=== PATIENT | female | born 2000 | race Caucasian/White ===

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

== ENCOUNTER 2021-07-10 07:48 | Emergency (ER) | payer BC ==
[~2021-07-10] VITALS: Ht 167.6 cm; Wt 90.7 kg
[~2021-07-10 07:48] MED LIST changes: +AMOXICILLIN 50500 MG PO; +CIPROFLOXIN HC2.5 M1 OTIC; +PROMETHAZI6.25 MG/5 PO; +TESSALON PERLE100 MG PO
[2021-07-10] MEDS ORDERED: ZOFRAN ODT4 MG DISSOLVE (09:01)
[2021-07-10 09:06] VITALS: BP 122/68
== END 2021-07-10 09:08 | disposition home or self-care (01) ==
LOC: M.ERS 07:48
DX: B34.9 Viral infection, unspecified (principal); Z20.822 Contact with and (suspected) exposure to COVID-19; R11.2 Nausea with vomiting, unspecified

== ENCOUNTER 2021-07-13 13:49 | Emergency (ER) | payer BC ==
[~2021-07-13] VITALS: Ht 182.9 cm; Wt 90.7 kg
[~2021-07-13 13:49] MED LIST changes: +ZOFRAN ODT4 MG DISSOLVE
[2021-07-13] MEDS ORDERED: AUGMENTIN 875-1 EACH PO (15:10)
[2021-07-13] MEDS ORDERED: PREDNISONE 10 M10 M1 PO (15:10)
[2021-07-13 15:28] VITALS: BP 130/71
== END 2021-07-13 15:29 | disposition home or self-care (01) ==
LOC: M.ERS 13:49
DX: J36 Peritonsillar abscess (principal); Z20.822 Contact with and (suspected) exposure to COVID-19

== ENCOUNTER 2021-08-07 11:13 | Emergency (ER) | payer BC ==
[~2021-08-07] VITALS: Ht 170.2 cm; Wt 90.7 kg
[~2021-08-07 11:13] MED LIST changes: +AUGMENTIN 875-1 EACH PO; +PREDNISONE 10 M10 M1 PO
[2021-08-07 11:52] LABS: ABSOLUTE EOSINOPHILS 0.1 thou/uL (0.0-0.7); ABSOLUTE LYMPHOCYTES 1.5 thou/uL (0.8-5.3); ABSOLUTE MONOCYTES 0.8 thou/uL (0.0-1.2); ABSOLUTE NEUTROPHILS 6.1 thou/uL (1.6-8.1); BASOPHILS 0.5 %; EOSINOPHILS 0.9 %; HEMATOCRIT 36.9 % (37.0-47.0); HEMOGLOBIN 12.3 gm/dL (12.0-15.0); LYMPHOCYTES 17.2 %; MCH 28.1 pg (26.0-34.0); MCHC 33.4 g/dL (28.0-37.0); MONOCYTES 9.2 %; MPV 7.4 fl. (7.2-11.1); NUCLEATED RBCS 0 /100WBC; PLATELET COUNT* 309 thou/uL (150-400); POLYS 72.2 %; RBC 4.39 mil/uL (4.20-5.00); RDW-CV 14.9 % (10.5-14.5); WBC 8.4 thou/uL (4.0-11.0)
[2021-08-07 11:59] LABS: CALCIUM 8.7 mg/dL (8.5-10.1); CREATININE 0.8 mg/dL (0.6-1.3); POTASSIUM 3.7 mmol/L (3.5-5.1)
[2021-08-07 12:04] LABS: ALBUMIN 3.8 g/dL (3.4-5.0); TOTAL BILIRUBIN 0.4 mg/dL (<0.1-1.0); TOTAL PROTEIN 7.7 g/dL (6.4-8.2)
[2021-08-07 12:25] VITALS: BP 125/75
== END 2021-08-07 12:26 | disposition home or self-care (01) ==
LOC: M.ERS 11:13
PROVIDERS: Family Medicine
DX: J36 Peritonsillar abscess (principal); Z20.822 Contact with and (suspected) exposure to COVID-19; Z79.2 Long term (current) use of antibiotics; Z79.899 Other long term (current) drug therapy; Z88.8 Allergy status to other drugs, medicaments and biological substances

== ENCOUNTER 2021-11-08 21:51 | Emergency (ER) | payer BC ==
[~2021-11-08] VITALS: Ht 170.2 cm; Wt 90.7 kg
[2021-11-09 00:03] LABS: URINE BLOOD NEGATIVE (Negative); URINE CLARITY CLEAR; URINE COLOR YELLOW; URINE GLUCOSE-RANDOM NEGATIVE (Negative); URINE LEUKOCYTES-REFLEX NEGATIVE (Negative); URINE NITRITE-REFLEX NEGATIVE (Negative); URINE PROTEIN TRACE (Negative); URINE UROBILINOGEN 0.2 E.U./dl (0.2-1.0)
[2021-11-09 00:06] LABS: URINE BILIRUBIN 1+ (Negative); URINE KETONES 3+ (Negative)
[2021-11-09 00:07] LABS: ICTOTEST (BILI CONFIRMATORY) Negative (Negative)
[2021-11-09 00:18] LABS: AMP/METHAMP Negative (Negative); BARBITURATES Negative (Negative); BENZODIAZEPINES Negative (Negative); COCAINE Negative (Negative); METHADONE Negative (Negative); OPIATES Negative (Negative); PCP Negative (Negative); THC POSITIVE (Negative)
[2021-11-09 00:23] LABS: HEMATOCRIT 36.2 % (37.0-47.0); HEMOGLOBIN 11.8 gm/dL (12.0-15.0); MCH 27.1 pg (26.0-34.0); MCHC 32.7 g/dL (28.0-37.0); MPV 7.4 fl. (7.2-11.1); NUCLEATED RBCS 0 /100WBC; PLATELET COUNT* 285 thou/uL (150-400); RBC 4.36 mil/uL (4.20-5.00); RDW-CV 14.1 % (10.5-14.5); WBC 8.1 thou/uL (4.0-11.0)
[2021-11-09 00:26] LABS: CALCIUM 8.5 mg/dL (8.5-10.1); CREATININE 0.9 mg/dL (0.6-1.3); POTASSIUM 3.5 mmol/L (3.5-5.1)
[2021-11-09 00:31] LABS: ALBUMIN 3.5 g/dL (3.4-5.0); TOTAL BILIRUBIN 0.5 mg/dL (<0.1-1.0); TOTAL PROTEIN 7.2 g/dL (6.4-8.2)
[2021-11-09] MEDS ORDERED: PROMS25 WY RECTAL (01:41)
[2021-11-09] MEDS ORDERED: ZOFRAN ODT4 MG PO (01:41)
[2021-11-09 01:51] LABS: ABSOLUTE MONOCYTES 0.3 thou/uL (0.0-1.2); ABSOLUTE NEUTROPHILS 6.8 thou/uL (1.6-8.1); LARGE PLATELETS OCCASIONAL; PLATELET ESTIMATE ADEQUATE
[2021-11-09 02:36] VITALS: BP 113/59
== END 2021-11-09 02:37 | disposition home or self-care (01) ==
LOC: M.ERS 21:51
PROVIDERS: Personal Emergency Response Attendant
DX: R11.2 Nausea with vomiting, unspecified (principal); E86.0 Dehydration; R19.7 Diarrhea, unspecified; R10.9 Unspecified abdominal pain; Z88.8 Allergy status to other drugs, medicaments and biological substances